=== PATIENT | female | born 1990 | race Caucasian/White ===

== ENCOUNTER 2018-02-18 09:45 | Emergency (ER) | payer OTHER ==
[2018-02-18 09:58] VITALS: BP 129/74
[2018-02-18] MEDS ORDERED: LIDOCAINE 1%-EPI 1:100000 30 ML MDV SUBQ STA (10:08)
[2018-02-18] MEDS ORDERED: LIDOCAINE 1%-EPI 1:100000 30 ML MDV ONE (10:09)
[2018-02-18] MEDS ORDERED: BACITRACIN OINT TOP STA (10:28)
[2018-02-18] MEDS ORDERED: BACITRACIN OINT TOP ONE (10:29)
--- NOTE | 2018-02-18 10:31 | ED Physician Documentation ---
PD HPI UPPER EXT INJURY - Stated complaint Stated Complaint: R HAND LAC - Chief complaint Chief Complaint: Laceration - History obtained from History obtained from: Patient - History of Present Illness Location: Left, Finger (thumb) Type of injury: Laceration Where injury occurred: Home Timing - onset: Today (Just prior to arrival.) Associated symptoms: No: Weakness, Numbness - Additonal information Additional information: The patient is a 27-year-old active [employer] female who cut the base of her left thumb just prior to arrival when using a chisel on a piece of driftwood. She is right-hand dominant. She denies any other injuries. Tetanus status is up-to-date. Review of Systems Skin: reports: Laceration (s) Neurologic: denies: Focal weakness, Numbness PD PAST MEDICAL HISTORY - Past Medical History Psych: Depression, ADD/ADHD, Post traumatic stress disorder - Present Medications Home Medications: Ambulatory Orders Medication Instructions Recorded Confirmed Dextroamphetamine/Amphetamine 10 DAILY 02/18/18 [Adderall 10 mg Tablet] Duloxetine HCl 40 DAILY 02/18/18 - Allergies Allergies/Adverse Reactions: Allergies Allergy/AdvReac Type Severity Reaction Status Date / Time acetaminophen [From Vicodin] Allergy Unknown Verified 02/18/18 09:58 hydrocodone [From Vicodin] Allergy Unknown Verified 02/18/18 09:58 - Social History Does the pt smoke?: Yes Smoking Status: Current every day smoker Does the pt drink ETOH?: Yes Does the pt have substance abuse?: No - Immunizations Immunizations are current?: Yes - POLST Patient has POLST: No PD ED PE NORMAL - Vitals Vital signs reviewed: Yes (Normal) - General General: Alert and oriented X 3, Well developed/nourished - Respiratory Respiratory: No respiratory distress - Derm Derm: No rash - Extremities Extremities: Other (There is a 1.5 cm laceration at the volar base of the left thumb over the thenar eminence. She has full flexion and extension at the IP and MP joints, against resistance. Distal neurovascular is intact.) - Neuro Neuro: Alert and oriented X 3, No motor deficit, No sensory deficit Results - Vitals Vitals: Vital Signs - 24 hr 02/18/18 09:56 Temperature 36.6 C Heart Rate 102 H Respiratory 18 Rate Blood Pressure 129/74 O2 Saturation 100 Oxygen O2 Source Room air Procedures - Laceration (location) left thumb Length in cm: 1.5 Wound type: Linear Neurovascular status: Sensory intact, Motor intact, Vascular intact Tendon involvement: Tendon intact Anesthesia: Lidocaine 1% with epi Wound Preparation: Hibiclens, Irrigated copiously NS, Wound explored, To the base. No: FB identified Skin layer closure: Nylon, Interrupted, Size #-0 - enter number (5), Sutures - enter # (4) Other: Patient tolerated well, No complications, Neurovascular intact, Dressing applied, Tetanus UTD Complexity: Simple PD MEDICAL DECISION MAKING - ED course Complexity details: considered differential, d/w patient ED course: The patient's presentation is significant for laceration to the thenar eminence of the left thumb. Treatment in the emergency department included thorough cleaning of the wound after topical anesthetic using 1% lidocaine with epinephrine. The wound was repaired with 5-0 nylon simple sutures. Antibiotic ointment and gauze dressing was applied. I discussed with the patient the expected course of healing, appropriate wound care, timing for suture removal, as well as potentially worrisome signs or symptoms that should prompt reevaluation in the emergency department. - Sepsis Event Vital Signs: Vital Signs - 24 hr 02/18/18 09:56 Temperature 36.6 C Heart Rate 102 H Respiratory 18 Rate Blood Pressure 129/74 O2 Saturation 100 Oxygen O2 Source Room air Departure - Departure Disposition: 01 Home, Self Care Clinical Impression: Laceration Condition: Stable Instructions: ED Laceration Ext Sutr Stap Tape Follow-Up: Rowdy Temple MD [Primary Care Provider] - Comments: Keep the wound clean, and apply antibiotic ointment daily. You can use Tylenol or ibuprofen if needed for pain or discomfort. Follow-up for suture removal in 10-12 days. Return to the emergency department if you develop any sign of infection, or otherwise worsening symptoms. Discharge Date/Time: 02/18/18 10:34
== END 2018-02-18 10:34 | disposition home or self-care (01) ==
LOC: ED 09:45
DX: S61.012A Laceration without foreign body of left thumb without damage to nail, initial encounter (principal); W27.0XXA Contact with workbench tool, initial encounter; Y93.D9 Activity, other involving arts and handcrafts; Y92.009 Unspecified place in unspecified non-institutional (private) residence as the place of occurrence of the external cause; F17.200 Nicotine dependence, unspecified, uncomplicated
CPT/HCPCS: 12001; 99282; 99283; A9270

== ENCOUNTER 2018-03-09 11:54 | Emergency (ER) | payer OTHER ==
[2018-03-09] MEDS ORDERED: IPRATROPIUM/ALBUTEROL 3 ML NEB INH STA (13:28)
[2018-03-09] MEDS ORDERED: BENZONATATE 100 MG CAPSULE PO STA (13:28)
--- NOTE | 2018-03-09 13:32 | ED Physician Documentation ---
PD HPI URI - Stated complaint Stated Complaint: COUGH/CHEST PX - Chief complaint Chief Complaint: Resp - History obtained from History obtained from: Patient - History of Present Illness Timing - onset: How many days ago (2) Timing duration: Days (2) Timing details: Gradual onset Pain level max: 5 Pain level now: 5 Associated symptoms: Fever, Chills, Nasal congestion, Rhinorrhea, Sore throat, Productive cough, Dyspnea (wheezing) Contributing factors: Sick contact Improves by: Rest, MDI/nebulizer (out of her inhaler) Worsened by: Activity, Breathing Similar symptoms before: Diagnosis (bronchitis) Recently seen: Not recently seen Review of Systems Constitutional: reports: Fever, Chills Nose: reports: Rhinorrhea / runny nose, Congestion Cardiac: denies: Chest pain / pressure Respiratory: reports: Cough, Wheezing GI: denies: Abdominal Pain, Nausea, Vomiting, Diarrhea : reports: Other (states no possibility of ). denies: Now EGA Skin: denies: Rash Musculoskeletal: denies: Neck pain, Back pain Neurologic: denies: Headache PD PAST MEDICAL HISTORY - Past Medical History Past Medical History: Yes Cardiovascular: None Respiratory: Asthma, Other Neuro: None Endocrine/Autoimmune: None GI: None TRANSITION ASSISTANT: None : None HEENT: None Psych: Depression, ADD/ADHD, Post traumatic stress disorder Musculoskeletal: None Derm: None - Past Surgical History Past Surgical History: No - Present Medications Home Medications: Ambulatory Orders Medication Instructions Recorded Confirmed Dextroamphetamine/Amphetamine 10 DAILY 02/18/18 [Adderall 10 mg Tablet] Duloxetine HCl 40 DAILY 02/18/18 Albuterol Sulf [Ventolin Hfa 1 - 2 puffs INH Q4HR PRN #1 inhaler 03/09/18 Inhaler] Benzonatate [Tessalon Perle] 100 - 200 mg PO TID PRN #30 capsule 03/09/18 Cetirizine HCl/Pseudoephedrine 1 each PO BID PRN #30 tab.er.12h 03/09/18 [Zyrtec-D Tablet] Doxycycline Hyclate 100 mg PO BID #20 capsule 03/09/18 - Allergies Allergies/Adverse Reactions: Allergies Allergy/AdvReac Type Severity Reaction Status Date / Time acetaminophen [From Vicodin] Allergy Unknown Verified 03/09/18 12:02 hydrocodone [From Vicodin] Allergy Unknown Verified 03/09/18 12:02 - Social History Does the pt smoke?: Yes Smoking Status: Current every day smoker Does the pt drink ETOH?: Yes Does the pt have substance abuse?: No - Immunizations Immunizations are current?: Yes - POLST Patient has POLST: No PD ED PE NORMAL - Vitals Vital signs reviewed: Yes - General General: Alert and oriented X 3, No acute distress - HEENT HEENT: PERRL, Ears normal, Moist mucous membranes, Other (clear rhinorrhea, mild posterior oropharyngeal erythema. no tonsillar exudates.) - Neck Neck: Supple, no meningeal sign, No adenopathy - Cardiac Cardiac: RRR - Respiratory Respiratory: Other (wheezing B) - Abdomen Abdomen: Soft, Non tender, Non distended - Derm Derm: Warm and dry - Extremities Extremities: No edema, No calf tenderness / cord - Neuro Neuro: Alert and oriented X 3 - Psych Psych: Normal mood, Normal affect Results - Vitals Vitals: Vital Signs - 24 hr 03/09/18 03/09/18 03/09/18 12:00 14:00 14:17 Temperature 36.2 C L 37.1 C Heart Rate 102 H 100 103 H Respiratory 16 16 18 Rate Blood Pressure 121/73 124/80 O2 Saturation 99 98 Oxygen O2 Source Room air PD MEDICAL DECISION MAKING - ED course Complexity details: reviewed results, re-evaluated patient, considered differential, d/w patient ED course: Patient is a 27-year-old female with a long-standing history of asthma who also smokes. She has developed fever, chills coughing and wheezing. Feels better after nebulizer treatment. Will place on antibiotics and supportive medications at home. She is well-appearing, nontoxic. No hypoxia or respiratory distress. Patient counseled regarding signs and symptoms for which I believe and urgent re-evaluation would be necessary. Patient with good understanding of and agreement to plan and is comfortable going home at this time This document was made in part using voice recognition software. While efforts are made to proofread this document, sound alike and grammatical errors may occur. - Sepsis Event Vital Signs: Vital Signs - 24 hr 03/09/18 03/09/18 03/09/18 12:00 14:00 14:17 Temperature 36.2 C L 37.1 C Heart Rate 102 H 100 103 H Respiratory 16 16 18 Rate Blood Pressure 121/73 124/80 O2 Saturation 99 98 Oxygen O2 Source Room air Departure - Departure Disposition: 01 Home, Self Care Clinical Impression: URI (upper respiratory infection) Qualifiers: URI type: unspecified URI Qualified Code(s): J06.9 - Acute upper respiratory infection, unspecified Condition: Good Instructions: ED Bronchitis Asthmatic Follow-Up: Rowdy Temple MD [Primary Care Provider] - Within 1 week Prescriptions: Albuterol Sulf [Ventolin Hfa Inhaler] 1 - 2 puffs INH Q4HR PRN #1 inhaler PRN Reason: Shortness Of Air/Wheezing Benzonatate [Tessalon Perle] 100 - 200 mg PO TID PRN #30 capsule PRN Reason: Cough Cetirizine HCl/Pseudoephedrine [Zyrtec-D Tablet] 1 each PO BID PRN #30 tab.er.12h PRN Reason: Nasal Congestion Doxycycline Hyclate 100 mg PO BID #20 capsule Comments: Take all antibiotics until gone. Return if you worsen. The fevers will probably last 3-4 days. Use the inhaler as prescribed. Discharge Date/Time: 03/09/18 14:18
[2018-03-09 14:18] VITALS: BP 124/80
== END 2018-03-09 14:18 | disposition home or self-care (01) ==
LOC: ED 11:54
DX: J06.9 Acute upper respiratory infection, unspecified (principal); F17.200 Nicotine dependence, unspecified, uncomplicated; J45.909 Unspecified asthma, uncomplicated
CPT/HCPCS: 94640; 99283; A9270

== ENCOUNTER 2018-04-14 00:36 | Outpatient (CLI) | payer OTHER | END 2018-04-14 00:37 | disposition critical access hospital (66) | LOC: EMS 00:36 | PROVIDERS: ATTEND Surgery | DX: F41.9 Anxiety disorder, unspecified (principal); Y04.8XXA Assault by other bodily force, initial encounter; Y92.89 Other specified places as the place of occurrence of the external cause | CPT/HCPCS: A0425; A0429 ==

== ENCOUNTER 2018-04-14 00:54 | Emergency (ER) | payer OTHER ==
[2018-04-14] MEDS ORDERED: LORazepam 0.5 MG TABLET PO STA (01:07)
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
[2018-04-14 02:34] VITALS: BP 107/64
== END 2018-04-14 02:34 | disposition home or self-care (01) ==
LOC: EDUNIT# → ED 00:54
DX: F41.9 Anxiety disorder, unspecified (principal); R51 Headache; Y04.8XXA Assault by other bodily force, initial encounter; Y92.89 Other specified places as the place of occurrence of the external cause
CPT/HCPCS: 99283; A9270

== ENCOUNTER 2018-05-11 22:20 | Emergency (ER) | payer OTHER ==
[2018-05-11 22:39] VITALS: BP 136/104
[2018-05-11] MEDS ORDERED: LORazepam 0.5 MG TABLET PO STA (23:09)
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
== END 2018-05-12 00:53 | disposition home or self-care (01) ==
LOC: ED 22:20
DX: F17.200 Nicotine dependence, unspecified, uncomplicated (principal); F43.10 Post-traumatic stress disorder, unspecified
CPT/HCPCS: 99283; A9270

== ENCOUNTER 2018-06-30 08:01 | Emergency (ER) | payer OTHER ==
[2018-06-30] MEDS ORDERED: SODIUM CHLORIDE 0.9% 1,000 ML IV ONE (08:13)
[2018-06-30] MEDS ORDERED: METOCLOPRAMIDE 10 MG/2 ML VIAL IVP STA (08:13)
[2018-06-30] MEDS ORDERED: FAMOTIDINE 20 MG in SODIUM CHLORIDE 0.9% 50 ML IV STA (08:33)
[2018-06-30] MEDS ORDERED: LIDOCAINE VISCOUS 2% 15 ML UDC MM STA (08:33)
[2018-06-30] MEDS ORDERED: MAG HYDROX/AL HYDROX/SIMETH 30 ML UDC PO STA (08:33)
--- NOTE | 2018-06-30 08:36 | ED Physician Documentation ---
History of Present Illness - Stated complaint Stated Complaint: VOMITING - Chief complaint Chief Complaint: Abd Pain - Additonal information Additional information: 27-year-old female presents the emergency department with reports of nausea and episodes of vomiting which have been getting progressively worse. The patient reports intermittently eating food getting nauseated and then regurgitating the food. The patient reports intermittent epigastric discomfort. The patient denies any lower abdominal pain. The patient denies blood in the vomit or stools. The patient does still smoke tobacco. Symptoms are described as moderate. The patient had an episode today and [place] The patient did not take any of her normal medications. No other associated symptoms Review of Systems Constitutional: denies: Fever, Chills Eyes: denies: Discharge Ears: denies: Ear pain Nose: denies: Congestion Throat: denies: Sore throat Cardiac: denies: Chest pain / pressure Respiratory: denies: Cough GI: reports: Abdominal Pain, Nausea, Vomiting : denies: Dysuria Skin: denies: Rash, Laceration (s) Musculoskeletal: denies: Neck pain Neurologic: denies: Generalized weakness Psychiatric: denies: Depressed Immunocompromised: denies: Immunocompromised PD PAST MEDICAL HISTORY - Past Medical History Cardiovascular: None Respiratory: Asthma, Other Neuro: None Endocrine/Autoimmune: None GI: None 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 : None HEENT: None Psych: Depression, ADD/ADHD, Post traumatic stress disorder Musculoskeletal: None Derm: None - Past Surgical History Past Surgical History: No - Present Medications Home Medications: Ambulatory Orders Medication Instructions Recorded Confirmed Dextroamphetamine/Amphetamine 10 DAILY 02/18/18 [Adderall 10 mg Tablet] Albuterol Sulf [Ventolin Hfa 1 - 2 puffs INH Q4HR PRN #1 inhaler 03/09/18 Inhaler] Cetirizine HCl/Pseudoephedrine 1 each PO BID PRN #30 tab.er.12h 03/09/18 [Zyrtec-D Tablet] DULoxetine [Cymbalta] 20 mg PO DAILY 06/30/18 06/30/18 Pantoprazole [Protonix] 40 mg PO 06/30/18 06/30/18 traZODone [Desyrel] 50 mg PO ONCE 06/30/18 06/30/18 - Allergies Allergies/Adverse Reactions: Allergies Allergy/AdvReac Type Severity Reaction Status Date / Time acetaminophen [From Vicodin] Allergy Unknown Verified 06/30/18 08:18 hydrocodone [From Vicodin] Allergy Unknown Verified 06/30/18 08:18 - Social History Does the pt smoke?: Yes Smoking Status: Current every day smoker Does the pt drink ETOH?: Yes Does the pt have substance abuse?: No - Immunizations Immunizations are current?: Yes - POLST Patient has POLST: No PD ED PE NORMAL - General General: Alert and oriented X 3, No acute distress - HEENT HEENT: Atraumatic, PERRL, EOMI, Ears normal - Neck Neck: Supple, no meningeal sign - Cardiac Cardiac: RRR, Strong equal pulses - Respiratory Respiratory: No respiratory distress, Clear bilaterally - Abdomen Abdomen: Soft, Non distended. No: Non tender (No Don sign, no Mild tenderness in the epigastrium, no rebound or peritoneal signs) - Derm Derm: Normal color - Extremities Extremities: No deformity - Neuro Neuro: Alert and oriented X 3, Normal speech - Psych Psych: Normal affect Results - Vitals Vitals: Vital Signs - 24 hr 06/30/18 08:13 Temperature 36.0 C L Heart Rate 84 Respiratory 14 Rate Blood Pressure 126/91 H O2 Saturation 98 Oxygen O2 Source Room air - Labs Labs: Laboratory Tests 06/30/18 06/30/18 06/30/18 08:30 08:30 08:30 WBC 7.9 RBC 4.47 Hgb 14.1 Hct 40.8 MCV 91.3 MCH 31.5 H MCHC 34.5 RDW 13.6 Plt Count 253 MPV 9.7 Neut # (Auto) 4.9 Lymph # (Auto) 2.3 [place] # (Auto) 0.6 Eos # (Auto) 0.1 Baso # (Auto) 0.1 Absolute Nucleated RBC 0.00 Nucleated RBC % 0.0 Sodium 136 Potassium 4.0 Chloride 102 Carbon Dioxide 26 Anion Gap 8.0 BUN 17 Creatinine 0.8 Estimated GFR (MDRD) 87 L Glucose 92 Calcium 9.5 Total Bilirubin 0.6 AST 22 ALT 15 Alkaline Phosphatase 56 Total Protein 7.7 Albumin 4.3 Globulin 3.4 Albumin/Globulin Ratio 1.3 Lipase 47 Urine Color YELLOW Urine Clarity HAZY Urine pH 6.0 Ur Specific [place] 1.025 Urine Protein NEGATIVE Urine Glucose (UA) NEGATIVE Urine Ketones NEGATIVE Urine Occult Blood NEGATIVE Urine Nitrite NEGATIVE Urine Bilirubin NEGATIVE Urine Urobilinogen 0.2 (NORMAL) Ur Leukocyte Esterase NEGATIVE Urine RBC 0-5 Urine WBC 0-3 Ur Squamous Epith Cells MOD Squamous H Urine Bacteria Few Ur Microscopic Review INDICATED Urine Culture Comments NOT INDICATED Urine HCG, Qual NEGATIVE PD MEDICAL DECISION MAKING - ED course ED course: On reevaluation the patient is resting comfortably and her symptoms are under control, the patient's resting discharge and to have her IV removed because she does not like the way the normal saline makes her feel. The patient has no pain on reexamination. The patient has no clinical findings to suggest acute cholecystitis and the patient has no lower abdominal pain to suggest an ovarian torsion or acute appendicitis. Presently I do not think imaging of her abdomen is warranted. The patient appears appropriate for discharge and ongoing outpatient management and is David scheduled to see gastroenterology next week. I advised returning to the emergency department for any worsening or any concerns. Departure - Departure Disposition: 01 Home, Self Care Clinical Impression: Vomiting Qualifiers: Vomiting type: unspecified Vomiting Intractability: unspecified Nausea presence: with nausea Qualified Code(s): R11.2 - Nausea with vomiting, unspecified Condition: Good Instructions: ED Diet Vomiting Diarrhea Follow-Up: Rowdy Temple MD [Primary Care Provider] - Within 1 week Comments: Please follow-up with the public services librarian as scheduled Please return for any worsening or any concerns Forms: Activity restrictions
[2018-06-30 08:38] LABS: BASOPHILS # (AUTO) 0.1 10^3/uL (0.0-0.1); BASOPHILS % (AUTO) 0.7 %; EOSINOPHILS # (AUTO) 0.1 10^3/uL (0.0-0.7); EOSINOPHILS % (AUTO) 0.9 %; HGB - HEMOGLOBIN 14.1 g/dL (12.0-16.0); LYMPHOCYTES # (AUTO) 2.3 10^3/uL (1.5-3.5); LYMPHOCYTES % (AUTO) 29.1 %; MEAN CORPUSCULAR HEMOGLOBIN 31.5 pg (27.0-31.0); MEAN CORPUSCULAR HGB CONC 34.5 g/dL (32.0-36.0); MEAN CORPUSCULAR VOLUME 91.3 fL (81.0-99.0); MEAN PLATELET VOLUME 9.7 fL (7.9-10.8); MONOCYTES # (AUTO) 0.6 10^3/uL (0.0-1.0); MONOCYTES % (AUTO) 7.8 %; NEUTROPHILS # (AUTO) 4.9 10^3/uL (1.5-6.6); NEUTROPHILS % (AUTO) 61.5 %; PLT - PLATELET COUNT 253 10^3/uL (130-450); RED BLOOD COUNT 4.47 10^6/uL (4.20-5.40); RED CELL DISTRIBUTION WIDTH 13.6 % (12.0-15.0); WHITE BLOOD COUNT 7.9 x10^3/uL (4.8-10.8)
[2018-06-30 08:46] LABS: BILIRUBIN,URINE NEGATIVE (NEGATIVE); GLUCOSE, URINE (UA) NEGATIVE (NEGATIVE); KETONES,URINE (UA) NEGATIVE (NEGATIVE); LEUKOCYTE ESTERASE, URINE NEGATIVE (NEGATIVE); NITRITE,URINE NEGATIVE (NEGATIVE); OCCULT BLOOD,URINE NEGATIVE (NEGATIVE); PROTEIN,URINE NEGATIVE (NEGATIVE); UROBILINOGEN,URINE 0.2 (NORMAL) E.U./dL (NORMAL)
[2018-06-30 08:48] LABS: CLARITY,URINE HAZY (CLEAR); HCG UR QUAL NEGATIVE
[2018-06-30 08:51] LABS: ALBUMIN 4.3 g/dL (3.2-5.5); ALBUMIN/GLOBULIN RATIO 1.3 (1.0-2.2); BILIRUBIN,TOTAL 0.6 mg/dL (0.2-1.0); CALCIUM 9.5 mg/dL (8.5-10.3); CREATININE 0.8 mg/dL (0.4-1.0); TOTAL PROTEIN 7.7 g/dL (6.7-8.2)
[2018-06-30 08:53] LABS: BACTERIA,URINE Few /HPF (None Seen); RBC,URINE 0-5 /HPF (0-5); SQUAMOUS EPITHELIAL CELL,UR MOD Squamous (<= Few)
[2018-06-30 09:07] VITALS: BP 123/88
== END 2018-06-30 09:07 | disposition home or self-care (01) ==
LOC: ED 08:01
DX: R11.2 Nausea with vomiting, unspecified (principal); F17.200 Nicotine dependence, unspecified, uncomplicated
CPT/HCPCS: 36415; 80053; 81001; 81025; 83690; 85025; 96374; 96375; 99283; A9270; J2765; J7040; 81003; 87086

== ENCOUNTER 2018-08-11 07:42 | Emergency (ER) | payer OTHER ==
[2018-08-11 07:56] VITALS: BP 128/96
--- NOTE | 2018-08-11 08:02 | ED Physician Documentation ---
PD HPI HEENT - Stated complaint Stated Complaint: VOMITING/EAR PX - Chief complaint Chief Complaint: Heent - History obtained from History obtained from: Patient - History of Present Illness Timing - onset: Today Timing - duration: Hours Timing - details: Abrupt onset, Still present Location: Left ear Improves: Medication Associated symptoms: Congestion, Rhinorrhea, Headache, Cough Similar symptoms before: Diagnosis (OM) Recently seen: Clinic - Additional information Additional information: 28-year-old female who has had a recent episode of otitis media treated with Augmentin had improvement and she is now awakened with symptoms again. She is got cough congestion left ear pain and she has had vomiting with her cough. Review of Systems Constitutional: denies: Fever Eyes: denies: Decreased vision Ears: reports: Ear pain Nose: reports: Rhinorrhea / runny nose, Congestion Throat: reports: Sore throat Cardiac: denies: Chest pain / pressure, Palpitations Respiratory: reports: Cough. 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 HEENT: None Psych: Depression, ADD/ADHD, Post traumatic stress disorder Musculoskeletal: None Derm: None - Past Surgical History Past Surgical History: No - Present Medications Home Medications: Ambulatory Orders Medication Instructions Recorded Confirmed Dextroamphetamine/Amphetamine 10 tab PO DAILY 02/18/18 [Adderall 10 mg Tablet] Albuterol Sulf [Ventolin Hfa 1 - 2 puffs INH Q4HR PRN #1 inhaler 03/09/18 08/11/18 Inhaler] Cetirizine HCl/Pseudoephedrine 1 each PO BID PRN #30 tab.er.12h 03/09/18 08/11/18 [Zyrtec-D Tablet] DULoxetine [Cymbalta] 20 mg PO DAILY 06/30/18 08/11/18 Pantoprazole [Protonix] 40 mg PO DAILY 06/30/18 08/11/18 traZODone [Desyrel] 50 mg PO ONCE 06/30/18 08/11/18 Azithromycin [Zithromax] 250 mg PO DAILY #6 tablet 08/11/18 - Allergies Allergies/Adverse Reactions: Allergies Allergy/AdvReac Type Severity Reaction Status Date / Time acetaminophen [From Vicodin] Allergy Unknown Verified 08/11/18 07:56 hydrocodone [From Vicodin] Allergy Unknown Verified 08/11/18 07:56 - Social History Does the pt smoke?: Yes Smoking Status: Current every day smoker Does the pt drink ETOH?: Yes Does the pt have substance abuse?: No - Immunizations Immunizations are current?: Yes - POLST Patient has POLST: No PD ED PE NORMAL - Vitals Vital signs reviewed: Yes (hypertensive ) - General General: Alert and oriented X 3, No acute distress, Well developed/nourished - HEENT HEENT: Atraumatic, PERRL, EOMI, Pharynx benign, Other (left TM is inflamed along the umbo with rounding of the umbo. The right is clear) - Neck Neck: Supple, no meningeal sign, No bony TTP - Cardiac Cardiac: RRR, No murmur - Respiratory Respiratory: No respiratory distress, Clear bilaterally - Back Back: No CVA TTP, No spinal TTP - Derm Derm: Normal color, Warm and dry, No rash - Extremities Extremities: No deformity, No edema - Neuro Neuro: Alert and oriented X 3, screen room operator 2-12 intact, No motor deficit, No sensory deficit, Normal speech Eye Opening: Spontaneous Motor: Obeys Commands Verbal: Oriented GCS Score: 15 - Psych Psych: Normal mood, Normal affect Results - Vitals Vitals: Vital Signs - 24 hr 08/11/18 07:51 Temperature 36.6 C Heart Rate 93 Respiratory 14 Rate Blood Pressure 128/96 H O2 Saturation 100 Oxygen O2 Source Room air PD MEDICAL DECISION MAKING - ED course Complexity details: reviewed old records, considered differential, d/w patient ED course: 28-year-old female with history of otitis has recurrence and we will switch from Augmentin to is azithromycin. She is administered 10 mg of dexamethasone here in the emergency department Departure - Departure Disposition: 01 Home, Self Care Clinical Impression: Otitis media Qualifiers: Otitis media type: suppurative Chronicity: acute Laterality: left Recurrence: recurrent Spontaneous tympanic membrane rupture: without spontaneous rupture Qualified Code(s): H66.005 - Acute suppurative otitis media without spontaneous rupture of ear drum, recurrent, left ear Condition: Stable Instructions: ED Otitis Media Acute Adult Follow-Up: Rowdy Temple MD [Primary Care Provider] - Prescriptions: Azithromycin [Zithromax] 250 mg PO DAILY #6 tablet Forms: Activity restrictions
[2018-08-11] MEDS ORDERED: DEXAMETHASONE 10 MG/ML VIAL PO STA (08:11)
[2018-08-11] MEDS ORDERED: CHERRY SYRUP 10 ML UDC PO ONE (08:32)
== END 2018-08-11 08:31 | disposition home or self-care (01) ==
LOC: ED 07:42
DX: H66.005 Acute suppurative otitis media without spontaneous rupture of ear drum, recurrent, left ear (principal); F17.200 Nicotine dependence, unspecified, uncomplicated
CPT/HCPCS: 99283; A9270

== ENCOUNTER 2018-08-21 21:32 | Emergency (ER) | payer OTHER ==
[2018-08-21 21:56] LABS: BILIRUBIN,URINE NEGATIVE (NEGATIVE); GLUCOSE, URINE (UA) NEGATIVE (NEGATIVE); KETONES,URINE (UA) NEGATIVE (NEGATIVE); LEUKOCYTE ESTERASE, URINE TRACE (NEGATIVE); NITRITE,URINE NEGATIVE (NEGATIVE); OCCULT BLOOD,URINE LARGE (NEGATIVE); PH,URINE 6.5 PH (5.0-7.5); PROTEIN,URINE NEGATIVE (NEGATIVE); UROBILINOGEN,URINE 0.2 (NORMAL) E.U./dL (NORMAL)
[2018-08-21 21:59] LABS: CLARITY,URINE HAZY (CLEAR); HCG UR QUAL POSITIVE
[2018-08-21 22:05] LABS: BACTERIA,URINE None Seen /HPF (None Seen); SQUAMOUS EPITHELIAL CELL,UR RARE Squamous (<= Few)
[2018-08-21 22:39] LABS: BASOPHILS # (AUTO) 0.1 10^3/uL (0.0-0.1); BASOPHILS % (AUTO) 0.7 %; EOSINOPHILS % (AUTO) 0.5 %; HGB - HEMOGLOBIN 13.6 g/dL (12.0-16.0); LYMPHOCYTES # (AUTO) 2.1 10^3/uL (1.5-3.5); LYMPHOCYTES % (AUTO) 26.3 %; MEAN CORPUSCULAR HEMOGLOBIN 30.9 pg (27.0-31.0); MEAN CORPUSCULAR HGB CONC 33.8 g/dL (32.0-36.0); MEAN CORPUSCULAR VOLUME 91.5 fL (81.0-99.0); MEAN PLATELET VOLUME 9.5 fL (7.9-10.8); MONOCYTES # (AUTO) 0.6 10^3/uL (0.0-1.0); MONOCYTES % (AUTO) 7.4 %; NEUTROPHILS # (AUTO) 5.2 10^3/uL (1.5-6.6); NEUTROPHILS % (AUTO) 65.1 %; PLT - PLATELET COUNT 275 10^3/uL (130-450); RED BLOOD COUNT 4.39 10^6/uL (4.20-5.40); RED CELL DISTRIBUTION WIDTH 13.2 % (12.0-15.0); WHITE BLOOD COUNT 8.1 x10^3/uL (4.8-10.8)
--- NOTE | 2018-08-21 22:45 | ED Physician Documentation ---
PD HPI FEMALE - Stated complaint Stated Complaint: FEMALE PX - Chief complaint Chief Complaint: Abd Pain - History obtained from History obtained from: Patient - History of Present Illness Timing - onset: How many days ago (few days), Other (majority of symptoms started noon today) Timing - duration: Days Timing - details: Gradual onset, Intermittant, Waxing and waning Pain level max: 6 Associated symptoms: Back pain, Pelvic pain, Vaginal bleeding Contributing factors: Other (possibly ) Recently seen: Not recently seen - Additional information Additional information: has had vaginal bleeding ("spotting", per patient) x few days. Starting noon today, she has had increasingly frequent and intense suprapubic pain that radiates to her low back, as well as increased vaginal bleeding that had been brown spotting but became bright red and associated with clots that appear wallace/white Review of Systems Constitutional: denies: Fever Cardiac: reports: Reviewed and negative Respiratory: reports: Reviewed and negative GI: reports: Abdominal Pain (suprapubic (pelvic)). denies: Nausea, Vomiting, Constipation, Diarrhea : reports: Vaginal bleeding. 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 HEENT: None Psych: Depression, ADD/ADHD, Post traumatic stress disorder Musculoskeletal: None Derm: None - Past Surgical History Past Surgical History: No - Present Medications Home Medications: Ambulatory Orders Medication Instructions Recorded Confirmed Dextroamphetamine/Amphetamine 10 tab PO DAILY 02/18/18 [Adderall 10 mg Tablet] Albuterol Sulf [Ventolin Hfa 1 - 2 puffs INH Q4HR PRN #1 inhaler 03/09/18 08/11/18 Inhaler] Cetirizine HCl/Pseudoephedrine 1 each PO BID PRN #30 tab.er.12h 03/09/18 08/11/18 [Zyrtec-D Tablet] DULoxetine [Cymbalta] 20 mg PO DAILY 06/30/18 08/11/18 Pantoprazole [Protonix] 40 mg PO DAILY 06/30/18 08/11/18 traZODone [Desyrel] 50 mg PO ONCE 06/30/18 08/11/18 Azithromycin [Zithromax] 250 mg PO DAILY #6 tablet 08/11/18 - Allergies Allergies/Adverse Reactions: Allergies Allergy/AdvReac Type Severity Reaction Status Date / Time acetaminophen [From Vicodin] Allergy Unknown Verified 08/21/18 21:38 hydrocodone [From Vicodin] Allergy Unknown Verified 08/21/18 21:38 - Social History Does the pt smoke?: Yes Smoking Status: Current every day smoker Does the pt drink ETOH?: Yes Does the pt have substance abuse?: No - Immunizations Immunizations are current?: Yes - POLST Patient has POLST: No PD ED PE NORMAL - Vitals Vital signs reviewed: Yes - General General: Alert and oriented X 3, No acute distress, Well developed/nourished - Cardiac Cardiac: RRR, No murmur - Respiratory Respiratory: No respiratory distress, Clear bilaterally - Abdomen Abdomen: Soft, Non tender - Back Back: Other (mild bilateral CVA tenderness) Results - Vitals Vitals: Vital Signs - 24 hr 08/21/18 08/22/18 08/22/18 21:38 00:17 02:09 Temperature 36.6 C Heart Rate 122 H 106 H 94 Respiratory 16 16 18 Rate Blood Pressure 135/91 H 128/83 H 137/99 H O2 Saturation 100 100 100 Oxygen O2 Source Room air - Labs Labs: Laboratory Tests 08/21/18 08/21/18 08/21/18 21:49 21:49 22:35 WBC 8.1 RBC 4.39 Hgb 13.6 Hct 40.1 MCV 91.5 MCH 30.9 MCHC 33.8 RDW 13.2 Plt Count 275 MPV 9.5 Neut # (Auto) 5.2 Lymph # (Auto) 2.1 [place] # (Auto) 0.6 Eos # (Auto) 0.0 Baso # (Auto) 0.1 Absolute Nucleated RBC 0.00 Nucleated RBC % 0.0 Sodium Potassium Chloride Carbon Dioxide Anion Gap BUN Creatinine Estimated GFR (MDRD) Glucose Calcium HCG, Quant Urine Color YELLOW Urine Clarity HAZY Urine pH 6.5 Ur Specific [place] <=1.005 <=1.005 Urine Protein NEGATIVE Urine Glucose (UA) NEGATIVE Urine Ketones NEGATIVE Urine Occult Blood LARGE H Urine Nitrite NEGATIVE Urine Bilirubin NEGATIVE Urine Urobilinogen 0.2 (NORMAL) Ur Leukocyte Esterase TRACE H Urine RBC 6-10 H Urine WBC 0-3 Ur Squamous Epith Cells RARE Squamous Urine Bacteria None Seen Ur Microscopic Review INDICATED Urine Culture Comments INDICATED Urine HCG, Qual POSITIVE 08/21/18 08/21/18 22:35 22:35 WBC RBC Hgb Hct MCV MCH MCHC RDW Plt Count MPV Neut # (Auto) Lymph # (Auto) [place] # (Auto) Eos # (Auto) Baso # (Auto) Absolute Nucleated RBC Nucleated RBC % Sodium 138 Potassium 3.4 L Chloride 100 L Carbon Dioxide 25 Anion Gap 13.0 BUN 8 Creatinine 1.0 Estimated GFR (MDRD) 67 L Glucose 86 Calcium 9.4 HCG, Quant 714.86 Urine Color Urine Clarity Urine pH Ur Specific [place] Urine Protein Urine Glucose (UA) Urine Ketones Urine Occult Blood Urine Nitrite Urine Bilirubin Urine Urobilinogen Ur Leukocyte Esterase Urine RBC Urine WBC Ur Squamous Epith Cells Urine Bacteria Ur Microscopic Review Urine Culture Comments Urine HCG, Qual - Rads (name of study) OB first trimester US Radiology: Prelim report reviewed, See rad report PD MEDICAL DECISION MAKING - ED course Complexity details: reviewed results, re-evaluated patient, considered differential, d/w patient Departure - Departure Disposition: 01 Home, Self Care Clinical Impression: Threatened Condition: Good Instructions: ED Miscarriage Poss Follow-Up: Rowdy Temple MD [Primary Care Provider] - Comments: Your ultrasound did not show any evidence of . However, it is possible that it is simply too early in the to show on ultrasound, and your blood test suggests that this is a strong possibility. It is very important that you follow up with your doctor for repeat testing, ideally within the next 2-3 days. Other possibilities include miscarriage or a tubal (ectopic) . Further testing by your doctor will be able to differentiate between these different possible scenarios. Forms: Activity restrictions Discharge Date/Time: 08/22/18 02:10
[2018-08-21 22:48] LABS: CALCIUM 9.4 mg/dL (8.5-10.3)
--- NOTE | 2018-08-22 00:14 | Ultrasound Report ---
Reason: , cramping pain, bleeding Procedure Date: 08/21/2018 Accession Number: [id number] / [id number] Procedure: US - OB First Trimester CPT Code: FULL RESULT: EXAM: FIRST TRIMESTER OBSTETRIC ULTRASOUND (Less than 11 weeks) EXAM DATE: 08/21/2018 11:59 PM. CLINICAL HISTORY: , cramping pain, bleeding. LMP: 07/12/2018. COMPARISONS: None. TECHNIQUE: Transabdominal and transvaginal ultrasound examination with static image documentation. CLINICAL DATES: EGA 5 weeks 5 days with AYO 04/18/2019 based on LMP. ASSESSMENT: Gestational Sac: No evidence of an intrauterine or extrauterine gestation. MATERNAL STRUCTURES: Uterus: Anteverted. The endometrium measures 11 mm.. Cervix: Closed. Right Ovary/Adnexa: The ovary measures 2.5 x 2.0 x 1.7 cm, volume 4 cc. Unremarkable. Left Ovary/Adnexa: The ovary measures 2.8 x 2.7 x 1.7 cm, volume 7 cc. Unremarkable. Free Fluid: Trace in the cul-de-sac.. Other: None. IMPRESSION: 1. No evidence of an intrauterine or extrauterine gestation. Recommend correlation with serial quantitative beta hCG, and rescan as clinically warranted. RADIA
[2018-08-22 02:10] VITALS: BP 137/99
== END 2018-08-22 02:10 | disposition home or self-care (01) ==
LOC: ED 21:32
DX: O20.0 Threatened abortion (principal); O99.330 Smoking (tobacco) complicating pregnancy, unspecified trimester
CPT/HCPCS: 36415; 76801; 76817; 80048; 81001; 81003; 81025; 84702; 85025; 87086; 99283

== ENCOUNTER 2018-09-12 12:48 | Emergency (ER) | payer OTHER ==
--- NOTE | 2018-09-12 14:51 | ED Physician Documentation ---
History of Present Illness - Stated complaint Stated Complaint: EAR PX/SINUS PRESSURE - Chief complaint Chief Complaint: Heent - History obtained from History obtained from: Patient - History of Present Illness Timing: Today - Treatment prior to arrival Treatment prior to arrival: Patient is a 28-year-old female with history of recurrent ear infections over the past several months. Patient reports that she has tried 2 different antibiotics including amoxicillin, but otherwise unable to remember the second antibiotic. Patient complains of bilateral ear pain, as well as sinus congestion and pressure with purulent rhinorrhea. Patient also reports some itchiness to her throat which she attributes to postnasal drip, but no significant pain. Patient denies productive cough, fever, difficulty breathing, wheezing, or other concerns. No particular improving or worsening factors to her symptoms noted. 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 HEENT: None Psych: Depression, ADD/ADHD, Post traumatic stress disorder Musculoskeletal: None Derm: None - Past Surgical History Past Surgical History: No - Present Medications Home Medications: Ambulatory Orders Medication Instructions Recorded Confirmed Dextroamphetamine/Amphetamine 10 tab PO DAILY 02/18/18 [Adderall 10 mg Tablet] Albuterol Sulf [Ventolin Hfa 1 - 2 puffs INH Q4HR PRN #1 inhaler 03/09/18 08/11/18 Inhaler] Cetirizine HCl/Pseudoephedrine 1 each PO BID PRN #30 tab.er.12h 03/09/18 08/11/18 [Zyrtec-D Tablet] DULoxetine [Cymbalta] 20 mg PO DAILY 06/30/18 08/11/18 Pantoprazole [Protonix] 40 mg PO DAILY 06/30/18 08/11/18 traZODone [Desyrel] 50 mg PO ONCE 06/30/18 08/11/18 Azithromycin [Zithromax] 250 mg PO DAILY #6 tablet 08/11/18 Amox/Clav 875/125 [Augmentin] 1 each PO Q12H #14 tablet 09/12/18 - Allergies Allergies/Adverse Reactions: Allergies Allergy/AdvReac Type Severity Reaction Status Date / Time acetaminophen [From Vicodin] Allergy Unknown Verified 09/12/18 12:56 hydrocodone [From Vicodin] Allergy Unknown Verified 09/12/18 12:56 - Social History Does the pt smoke?: Yes Smoking Status: Current every day smoker Does the pt drink ETOH?: Yes Does the pt have substance abuse?: No - Immunizations Immunizations are current?: Yes - POLST Patient has POLST: No PD ED PE NORMAL - General General: Alert and oriented X 3, No acute distress, Well developed/nourished - HEENT HEENT: Atraumatic, Ears normal (Both TMs nonbulging, nonerythematous without effusion. No debris in canal. External ears unremarkable bilaterally.), Moist mucous membranes, Dentition benign. No: Pharynx benign (No pharyngeal or tonsillar swelling or erythema, but some exudate noted over left tonsil. Postnasal drip changes present as well.) - Cardiac Cardiac: RRR, No murmur - Respiratory Respiratory: No respiratory distress, Clear bilaterally - Derm Derm: Normal color, Warm and dry, No rash - Extremities Extremities: No deformity, No tenderness to palpate - Neuro Neuro: Alert and oriented X 3, No motor deficit, No sensory deficit Verbal: Incomprehensible Results - Vitals Vitals: Vital Signs - 24 hr 09/12/18 12:55 Temperature 36.6 C Heart Rate 95 Respiratory 18 Rate Blood Pressure 139/86 H O2 Saturation 100 Oxygen O2 Source Room air PD MEDICAL DECISION MAKING - ED course Complexity details: considered differential, d/w patient ED course: Most concerning for sinusitis given patient's complaints and physical exam findings. Also did find some evidence of exudate over left tonsil, although patient denies significant throat pain. No evidence of otitis media, otitis externa, mastoiditis on exam. Additionally, no evidence of uvulitis, uvular deviation or peritonsillar abscess noted. Do not have high suspicion for other systemic illnesses such as pneumonia. Discussed antibiotic choices to target appropriate infections, as well as other supportive cares, return precautions and follow-up. Patient voiced understanding and is comfortable with discharge plan. Departure - Departure Disposition: 01 Home, Self Care Clinical Impression: Sinusitis Qualifiers: Sinusitis location: unspecified location Chronicity: acute Recurrence: non- recurrent Qualified Code(s): J01.90 - Acute sinusitis, unspecified Condition: Good Instructions: ED Sinusitis Abx Tx Follow-Up: Rowdy Temple MD [Primary Care Provider] - Within 3 Days Prescriptions: Amox/Clav 875/125 [Augmentin] 1 each PO Q12H #14 tablet Comments: Recommend [id number] medication such as ibuprofen, Tylenol, nasal decongestants as needed. Please take antibiotics as prescribed. Recommend follow-up with your primary care physician next 2-3 days and return to ED sooner if expands worsening symptoms or other concerns. Forms: Activity restrictions
[2018-09-12 15:20] VITALS: BP 135/82
== END 2018-09-12 15:21 | disposition home or self-care (01) ==
LOC: ED 12:48
DX: J01.90 Acute sinusitis, unspecified (principal); J45.909 Unspecified asthma, uncomplicated; F17.200 Nicotine dependence, unspecified, uncomplicated
CPT/HCPCS: 99283

== ENCOUNTER 2018-11-28 22:07 | Emergency (ER) | payer OTHER ==
--- NOTE | 2018-11-28 23:27 | ED Physician Documentation ---
PD HPI ANIMAL BITE - Stated complaint Stated Complaint: LFT LEG DOG BITE - Chief complaint Chief Complaint: Laceration - History obtained from History obtained from: Patient, Family - History of Present Illness Location of injury(ies): [place] Details of the event: Dog, Pet animal, Immunization unknown, Animal can be observed, Animal control notified Timing - onset: Today Timing - duration: Minutes Timing - details: Abrupt onset, Still present Improved by: Rest, Immobilization Worsened by: Moving, Palpating Associated symptoms: No: Weakness, Numbness, Tingling, Swelling Contributing factors: No: Immunocompromised Similar symptoms before: Has not had sx before Recently seen: Not recently seen - Additional information Additional information: 28-year-old female was walking along the street when a dog jumped out and bit her in the back of the leg. She states that it was a very large dog there was a was an unprovoked attack and the wealth management advisor of the dog was able to control the dog but unable to provide evidence of rabies immunization. Police that were at the scene recommended the patient come to the hospital to get rabies vaccination. The patient has come to the emergency department she has 2 small puncture wounds to the back of the right thigh. 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 HEENT: None Psych: Depression, ADD/ADHD, Post traumatic stress disorder Musculoskeletal: None Derm: None - Past Surgical History Past Surgical History: No - Present Medications Home Medications: Ambulatory Orders Medication Instructions Recorded Confirmed Dextroamphetamine/Amphetamine 10 tab PO DAILY 02/18/18 [Adderall 10 mg Tablet] Albuterol Sulf [Ventolin Hfa 1 - 2 puffs INH Q4HR PRN #1 inhaler 03/09/18 08/11/18 Inhaler] Cetirizine HCl/Pseudoephedrine 1 each PO BID PRN #30 tab.er.12h 03/09/18 08/11/18 [Zyrtec-D Tablet] DULoxetine [Cymbalta] 20 mg PO DAILY 06/30/18 08/11/18 Pantoprazole [Protonix] 40 mg PO DAILY 06/30/18 08/11/18 traZODone [Desyrel] 50 mg PO ONCE 06/30/18 08/11/18 Azithromycin [Zithromax] 250 mg PO DAILY #6 tablet 08/11/18 Amox/Clav 875/125 [Augmentin] 1 each PO Q12H #14 tablet 09/12/18 - Allergies Allergies/Adverse Reactions: Allergies Allergy/AdvReac Type Severity Reaction Status Date / Time acetaminophen [From Vicodin] Allergy Unknown Verified 09/12/18 12:56 hydrocodone [From Vicodin] Allergy Unknown Verified 09/12/18 12:56 - Social History Does the pt smoke?: Yes Smoking Status: Current every day smoker Does the pt drink ETOH?: Yes Does the pt have substance abuse?: No - Immunizations Immunizations are current?: Yes - POLST Patient has POLST: No PD ED PE NORMAL - Vitals Vital signs reviewed: Yes (normal ) - General General: Alert and oriented X 3, No acute distress, Well developed/nourished - HEENT HEENT: Atraumatic, PERRL, EOMI - Respiratory Respiratory: No respiratory distress - Derm Derm: Normal color, Warm and dry, No rash - Extremities Extremities: No deformity, No edema, Other (There are scratches and 2 small [place] wounds that do not appear to entirely penetrate the dermis. 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, No motor deficit, No sensory deficit, Normal speech Eye Opening: Spontaneous Motor: Obeys Commands Verbal: Oriented GCS Score: 15 - Psych Psych: Normal mood, Normal affect Results - Vitals Vitals: Vital Signs - 24 hr 11/28/18 11/28/18 22:20 23:36 Temperature 36.3 C L 36.4 C L Heart Rate 88 90 Respiratory 15 20 Rate Blood Pressure 122/80 114/75 O2 Saturation 97 98 Oxygen O2 Source Room air PD MEDICAL DECISION MAKING - ED course Complexity details: considered differential, d/w patient, d/w family ED course: 28-year-old female with a superficial dog bite to the right thigh is up-to-date on her tetanus and does not require antibiotic prophylaxis for these specific wounds. She was asked to come to the emergency department for rabies inoculation and this is not indicated. The animal control was contacted the animal can be observed. Departure - Departure Disposition: 01 Home, Self Care Clinical Impression: Dog bite of right thigh Qualifiers: Encounter type: initial encounter Qualified Code(s): S71.151A - Open bite, right thigh, initial encounter Instructions: ED Bite Dog Follow-Up: Rowdy Temple MD [Primary Care Provider] - Discharge Date/Time: 11/28/18 23:35
[2018-11-28 23:37] VITALS: BP 114/75
== END 2018-11-28 23:35 | disposition home or self-care (01) ==
LOC: ED 22:07
DX: S71.151A Open bite, right thigh, initial encounter (principal); W54.0XXA Bitten by dog, initial encounter; Y93.01 Activity, walking, marching and hiking; Y92.410 Unspecified street and highway as the place of occurrence of the external cause; F17.200 Nicotine dependence, unspecified, uncomplicated
CPT/HCPCS: 99282; 99283

== ENCOUNTER 2019-01-01 14:07 | Emergency (ER) | payer OTHER ==
[2019-01-01 14:13] VITALS: BP 108/78
--- NOTE | 2019-01-01 14:18 | ED Physician Documentation ---
History of Present Illness - Stated complaint Stated Complaint: SORE THROAT/LILLI EAR PX/SOA - Chief complaint Chief Complaint: Heent - History obtained from History obtained from: Patient - Additonal information Additional information: Patient reports about 1 day of bilateral ear pain and sore throat with difficulty swallowing. Patient also reports productive cough without fever or difficulty breathing. Patient denies nasal congestion, rhinorrhea.No other improving or worsening factors noted. Review of Systems Constitutional: denies: Fever Ears: reports: Ear pain Nose: denies: Rhinorrhea / runny nose, Congestion Throat: reports: Sore throat, Swollen tonsils. denies: Dental pain / toothache Respiratory: reports: Cough. 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 HEENT: None Psych: Depression, ADD/ADHD, Post traumatic stress disorder Musculoskeletal: None Derm: None - Past Surgical History Past Surgical History: No - Present Medications Home Medications: Ambulatory Orders Medication Instructions Recorded Confirmed Dextroamphetamine/Amphetamine 10 tab PO DAILY 02/18/18 [Adderall 10 mg Tablet] Albuterol Sulf [Ventolin Hfa 1 - 2 puffs INH Q4HR PRN #1 inhaler 03/09/18 08/11/18 Inhaler] Cetirizine HCl/Pseudoephedrine 1 each PO BID PRN #30 tab.er.12h 03/09/18 08/11/18 [Zyrtec-D Tablet] DULoxetine [Cymbalta] 20 mg PO DAILY 06/30/18 08/11/18 Pantoprazole [Protonix] 40 mg PO DAILY 06/30/18 08/11/18 traZODone [Desyrel] 50 mg PO ONCE 06/30/18 08/11/18 Azithromycin [Zithromax] 250 mg PO DAILY #6 tablet 08/11/18 Amox/Clav 875/125 [Augmentin] 1 each PO Q12H #14 tablet 09/12/18 Penicillin V Potassium 500 mg PO BID 10 Days tablet 01/01/19 - Allergies Allergies/Adverse Reactions: Allergies Allergy/AdvReac Type Severity Reaction Status Date / Time acetaminophen [From Vicodin] Allergy Unknown Verified 01/01/19 14:13 hydrocodone [From Vicodin] Allergy Unknown Verified 01/01/19 14:13 - Social History Does the pt smoke?: Yes Smoking Status: Current every day smoker Does the pt drink ETOH?: Yes Does the pt have substance abuse?: No - Immunizations Immunizations are current?: Yes - POLST Patient has POLST: No PD ED PE NORMAL - Vitals Vital signs reviewed: Yes - General General: Alert and oriented X 3, No acute distress, Well developed/nourished - HEENT HEENT: Atraumatic, Moist mucous membranes, Dentition benign. No: Pharynx benign (Extremely enlarged tonsils bilaterally with significant erythema and extensive exudate present. No uvulitis, uvular deviation, peritonsillar abscess.) - Neck Neck: Supple, no meningeal sign - Cardiac Cardiac: RRR, No murmur - Respiratory Respiratory: No respiratory distress, Clear bilaterally - Derm Derm: Normal color, Warm and dry, No rash - Extremities Extremities: No deformity, No tenderness to palpate - Neuro Neuro: Alert and oriented X 3, No motor deficit, No sensory deficit - Psych Psych: Normal mood, Normal affect Results - Vitals Vitals: Vital Signs - 24 hr 01/01/19 14:12 Temperature 36.3 C L Heart Rate 105 H Respiratory 18 Rate Blood Pressure 108/78 O2 Saturation 99 Oxygen O2 Source Room air PD MEDICAL DECISION MAKING - ED course Complexity details: considered differential, d/w patient ED course: Patient presenting with obvious tonsillitis. Did not find evidence of peritonsillar abscess, dental abscess, facial abscess, uvulitis, or concern for retropharyngeal abscess. Patient does report ear discomfort but no signs of otitis media, otitis externa, mastoiditis, but bulging of TMs likely from tonsillitis. Do not have high suspicion for sinusitis, pneumonia, or other complication at this time. Discussed the etiology, treatment for such including antibiotics, other supportive cares, return precautions, and appropriate follow- up. Patient voiced understanding and is comfortable with discharge plan. Departure - Departure Disposition: 01 Home, Self Care Clinical Impression: Tonsillitis Condition: Good Instructions: ED Tonsillitis Follow-Up: your,doctor [Other] - Within 3 Days Prescriptions: Penicillin V Potassium 500 mg PO BID 10 Days tablet Comments: Please take antibiotics as prescribed to treat strep throat. Recommend taking a ntibiotics with a small amount of fluid to avoid upset stomach. May use [id number] medications such as ibuprofen for additional relief, as well as Listerine or salt water gargles. Please follow-up with primary care physician in next 2 to 3 days. Return to ED sooner if experience worsening symptoms or have other concerns.
== END 2019-01-01 15:01 | disposition home or self-care (01) ==
LOC: ED 14:07
DX: J03.90 Acute tonsillitis, unspecified (principal); J45.909 Unspecified asthma, uncomplicated; F17.200 Nicotine dependence, unspecified, uncomplicated
CPT/HCPCS: 87430; 99283; 99284

== ENCOUNTER 2019-05-21 13:30 | Emergency (ER) | payer OTHER ==
[2019-05-21] MEDS ORDERED: SODIUM CHLORIDE 0.9% 1,000 ML IV STA (13:50)
[2019-05-21] MEDS ORDERED: ONDANSETRON 4 MG/2 ML VIAL IVP STA (13:50)
[2019-05-21] MEDS ORDERED: PANTOPRAZOLE 40 MG VIAL IVP STA (14:06)
--- NOTE | 2019-05-21 14:09 | ED Physician Documentation ---
History of Present Illness - Stated complaint Stated Complaint: VOMITING - Chief complaint Chief Complaint: Abd Pain - History obtained from History obtained from: Patient, EMS - History of Present Illness Timing: Today Pain level max: 4 Pain level now: 2 - Additonal information Additional information: 28-year-old female presents to the emergency department with epigastric abdominal pain, vomiting. She states initially the vomit had a small amount of bright red blood in it. Now there is no longer any bleeding. Has a history of gastritis. She is not currently on any medications. Stopped her medications in December.. No diarrhea or constipation. No recent antibiotics. She is not , breast-feeding or trying to become . No recent travel. No fever. Nothing makes it better or worse Review of Systems Constitutional: denies: Fever, Chills Throat: denies: Sore throat Cardiac: denies: Chest pain / pressure Respiratory: denies: Dyspnea GI: reports: Vomiting. 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 HEENT: None Psych: Depression, ADD/ADHD, Post traumatic stress disorder Musculoskeletal: None Derm: None - Past Surgical History Past Surgical History: No - Present Medications Home Medications: Ambulatory Orders Medication Instructions Recorded Confirmed Dextroamphetamine/Amphetamine 10 tab PO DAILY 02/18/18 [Adderall 10 mg Tablet] Albuterol Sulf [Ventolin Hfa 1 - 2 puffs INH Q4HR PRN #1 inhaler 03/09/18 08/11/18 Inhaler] Cetirizine HCl/Pseudoephedrine 1 each PO BID PRN #30 tab.er.12h 03/09/18 08/11/18 [Zyrtec-D Tablet] DULoxetine [Cymbalta] 20 mg PO DAILY 06/30/18 08/11/18 Pantoprazole [Protonix] 40 mg PO DAILY 06/30/18 08/11/18 traZODone [Desyrel] 50 mg PO ONCE 06/30/18 08/11/18 Azithromycin [Zithromax] 250 mg PO DAILY #6 tablet 08/11/18 Amox/Clav 875/125 [Augmentin] 1 each PO Q12H #14 tablet 09/12/18 Penicillin V Potassium 500 mg PO BID 10 Days tablet 01/01/19 Ondansetron Odt [Zofran] 4 mg TL Q6H PRN #10 tablet 05/21/19 Pantoprazole Sodium [Protonix] 20 mg PO DAILY #30 tablet. 05/21/19 Sucralfate [Carafate] 1 gm PO ACHS #60 tablet 05/21/19 - Allergies Allergies/Adverse Reactions: Allergies Allergy/AdvReac Type Severity Reaction Status Date / Time acetaminophen [From Vicodin] Allergy Unknown Verified 05/21/19 13:40 hydrocodone [From Vicodin] Allergy Unknown Verified 05/21/19 13:40 - Social History Does the pt smoke?: Yes Smoking Status: Current some day smoker Does the pt drink ETOH?: Yes Does the pt have substance abuse?: No - Immunizations Immunizations are current?: Yes - POLST Patient has POLST: No PD ED PE NORMAL - Vitals Vital signs reviewed: Yes - General General: Alert and oriented X 3, No acute distress, Well developed/nourished - HEENT HEENT: PERRL, Moist mucous membranes - Neck Neck: Supple, no meningeal sign - Cardiac Cardiac: RRR - Respiratory Respiratory: No respiratory distress, Clear bilaterally - Abdomen Abdomen: Soft, Non tender, Non distended - Back Back: No CVA TTP - Derm Derm: Warm and dry, No rash - Extremities Extremities: No edema - Neuro Neuro: Alert and oriented X 3 - Psych Psych: Normal mood, Normal affect Results - Vitals Vitals: Vital Signs - 24 hr 05/21/19 05/21/19 05/21/19 13:36 13:49 14:32 Temperature 37.0 C 36.6 C 36.1 C L Heart Rate 96 85 82 Respiratory 20 18 16 Rate Blood Pressure 131/98 H 125/86 H 114/83 H O2 Saturation 98 97 100 05/21/19 14:59 Temperature 36.5 C Heart Rate 72 Respiratory 18 Rate Blood Pressure 105/69 O2 Saturation 98 Oxygen O2 Source Room air - Labs Labs: Laboratory Tests 05/21/19 05/21/19 14:00 14:00 WBC 9.8 RBC 4.24 Hgb 13.3 Hct 39.7 MCV 93.6 MCH 31.4 H MCHC 33.5 RDW 13.4 Plt Count 259 MPV 11.2 H Neut # (Auto) 7.4 H Lymph # (Auto) 1.5 [place] # (Auto) 0.6 Eos # (Auto) 0.0 Baso # (Auto) 0.1 Absolute Nucleated RBC 0.00 Nucleated RBC % 0.0 Sodium 140 Potassium 3.7 Chloride 104 Carbon Dioxide 26 Anion Gap 10.0 BUN 14 Creatinine 0.7 Estimated GFR (MDRD) 101 Glucose 103 H Calcium 8.4 L Total Bilirubin 0.6 AST 24 ALT 19 Alkaline Phosphatase 60 Total Protein 7.5 Albumin 4.0 Globulin 3.5 Albumin/Globulin Ratio 1.1 Lipase 39 PD MEDICAL DECISION MAKING - ED course Complexity details: reviewed results, re-evaluated patient, considered differential, d/w patient ED course: Patient with what appears to be gastritis. She is well-appearing, nontoxic. Given Protonix and Zofran. Feels much better. Will place on a PPI for home. Patient counseled regarding signs and symptoms for which I believe and urgent re-evaluation would be necessary. Patient with good understanding of and agreement to plan and is comfortable going home at this time This document was made in part using voice recognition software. While efforts are made to proofread this document, sound alike and grammatical errors may occur. Abdomen is soft, nontender nondistended on serial exam. Departure - Departure Disposition: 01 Home, Self Care Clinical Impression: Gastritis Qualifiers: Gastritis type: unspecified gastritis Chronicity: acute Gastritis bleeding: with bleeding Qualified Code(s): K29.01 - Acute gastritis with bleeding Condition: Good Instructions: ED Gastritis Follow-Up: your,doctor in 1 week [Other] Prescriptions: Ondansetron Odt [Zofran] 4 mg TL Q6H PRN #10 tablet PRN Reason: Nausea / Vomiting Pantoprazole Sodium [Protonix] 20 mg PO DAILY #30 tablet. Sucralfate [Carafate] 1 gm PO ACHS #60 tablet Comments: Return if you worsen. Follow-up with your doctor for further care. Discharge Date/Time: 05/21/19 15:43
[2019-05-21 14:15] LABS: BASOPHILS # (AUTO) 0.1 10^3/uL (0.0-0.1); BASOPHILS % (AUTO) 0.6 %; EOSINOPHILS % (AUTO) 0.4 %; HGB - HEMOGLOBIN 13.3 g/dL (12.0-16.0); LYMPHOCYTES # (AUTO) 1.5 10^3/uL (1.5-3.5); LYMPHOCYTES % (AUTO) 15.7 %; MEAN CORPUSCULAR HEMOGLOBIN 31.4 pg (27.0-31.0); MEAN CORPUSCULAR HGB CONC 33.5 g/dL (32.0-36.0); MEAN CORPUSCULAR VOLUME 93.6 fL (81.0-99.0); MEAN PLATELET VOLUME 11.2 fL (7.9-10.8); MONOCYTES # (AUTO) 0.6 10^3/uL (0.0-1.0); MONOCYTES % (AUTO) 6.4 %; NEUTROPHILS # (AUTO) 7.4 10^3/uL (1.5-6.6); NEUTROPHILS % (AUTO) 75.7 %; PLT - PLATELET COUNT 259 10^3/uL (130-450); RED BLOOD COUNT 4.24 10^6/uL (4.20-5.40); RED CELL DISTRIBUTION WIDTH 13.4 % (12.0-15.0); WHITE BLOOD COUNT 9.8 x10^3/uL (4.8-10.8)
[2019-05-21 14:31] LABS: ALBUMIN/GLOBULIN RATIO 1.1 (1.0-2.2); BILIRUBIN,TOTAL 0.6 mg/dL (0.2-1.0); CALCIUM 8.4 mg/dL (8.5-10.3); CREATININE 0.7 mg/dL (0.4-1.0); TOTAL PROTEIN 7.5 g/dL (6.7-8.2)
[2019-05-21] MEDS ORDERED: PROMETHAZINE INJ 25 MG in SODIUM CHLORIDE 0.9% 50 ML IV STA (14:56)
[2019-05-21 15:00] VITALS: BP 105/69
== END 2019-05-21 15:43 | disposition home or self-care (01) ==
LOC: EDUNIT# → ED 13:30
DX: K29.01 Acute gastritis with bleeding (principal); F17.200 Nicotine dependence, unspecified, uncomplicated
CPT/HCPCS: 36415; 80053; 83690; 85025; 96361; 96365; 96375; 99283; 99284; A0425; A0427; J7040

== ENCOUNTER 2020-05-30 12:05 | Outpatient (CLI) | payer MEDICAID ==
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
== END 2020-05-30 23:59 | disposition home or self-care (01) ==
LOC: COV 12:05
PROVIDERS: ATTEND Family Medicine
DX: R05 Cough (principal); R09.81 Nasal congestion; R43.9 Unspecified disturbances of smell and taste; M79.10 Myalgia, unspecified site; R53.83 Other fatigue; Z20.828 Contact with and (suspected) exposure to other viral communicable diseases